=== PATIENT | male | born 1965 | race Caucasian/White ===

== ENCOUNTER 2020-11-21 07:18 | Emergency (ER) | payer BC, OTHER ==
--- NOTE | 2020-11-21 07:49 | EDPHYS ---
Physician Documentation [facility] Name: Jaylan Rios Age: 55 yrs Sex: Male : 1965 Arrival Date: 11/21/2020 Time: 07:23 Bed 13 Private MD: ED Physician Keith Shields HPI: 11/21 07:44 This 55 yrs old Male presents to ER via Ambulatory with complaints of Facial rn Swelling. 07:44 The patient presents with itching, localized swelling, rash. Onset: The rn symptoms/episode began/occurred 1 week(s) ago. Associated signs and symptoms: Pertinent positives: hives, rash, swelling, Pertinent negatives: fever, headache, shortness of breath. Possible causes: The patient has no known obvious cause for the symptoms. At home the patient or guardian has treated the symptoms with steroids. Severity of symptoms: At their worst the symptoms were moderate in the emergency department the symptoms are unchanged. The patient has not experienced similar symptoms in the past. The patient has been recently seen by a physician:. Pt reports facial swelling and rash, began 1 week ago, seen by pcp, put on medrol dose pack and aide, does not seem to help, + itching, now rash spreading to neck and torso. No known exposure. No sob. . Historical: - Allergies: 07:39 Sulfa (Sulfonamide Antibiotics); ll1 - PMHx: 07:39 Hypertension; High Cholesterol; ll1 - PSHx: 07:39 LEFT ROTATOR CUFF SURGERY; Hernia repair; ll1 - Immunization history:: Client reports receiving the 2nd dose of the Covid vaccine, Flu vaccine is not up to date. - Social history:: Smoking status: Patient reports use of chewing tobacco. - Family history:: not pertinent. - Hospitalizations: : No recent hospitalization is reported. ROS: 07:44 Constitutional: Negative for fever, chills, and weight loss, Eyes: Negative for injury, rn pain, redness, and discharge, ENT: Negative for injury, pain, and discharge, Neck: Negative for injury, pain, and swelling, Cardiovascular: Negative for chest pain, palpitations, and edema, Respiratory: Negative for shortness of breath, cough, wheezing, and pleuritic chest pain, Abdomen/GI: Negative for abdominal pain, nausea, vomiting, diarrhea, and constipation, Back: Negative for injury and pain, MS/Extremity: Negative for injury and deformity, Skin: + rash and itching to face/torso/neck Neuro: Negative for headache, weakness, numbness, tingling, and seizure. Exam: 07:44 Constitutional: This is a well developed, well nourished patient who is awake, alert, rn and in no acute distress. Scratching face and neck. Head/Face: Normocephalic, atraumatic. Eyes: + bilateral periorbital edema, no ocular drainage ENT: No oral swelling or stridor. Cardiovascular: Regular rate and rhythm. No pulse deficits. Respiratory: No increased work of breathing, no retractions or nasal flaring. Skin: + urticarial rash with excoriations, no skin sloughing, no bullae. No petechiae. MS/ Extremity: Pulses equal, no cyanosis. Neurovascular intact. Full, normal range of motion. Equal circumference. Neuro: Awake and alert, GCS 15 Vital Signs: 07:39 BP 137 / 104; Pulse 77; Resp 17; Temp 98.3; Pulse Ox 99% ; Weight 107.95 kg; Height 5 ll1 ft. 11 in. (180.34 cm); Pain 0/10; 08:04 BP 148 / 97; Pulse 74; Resp 17; Pulse Ox 98% on R/A; ll1 08:23 Pulse 77; Resp 17; Pulse Ox 99% on R/A; ll1 07:39 Body Mass Index 33.19 (107.95 kg, 180.34 cm) ll1 MDM: 07:28 Patient medically screened. rn 07:48 Differential diagnosis: angioedema, urticaria, local dermatitis. Data reviewed: vital rn signs, nurses notes, and as a result, I will discharge patient. Counseling: I had a detailed discussion with the patient and/or guardian regarding: the historical points, exam findings, and any diagnostic results supporting the discharge/admit diagnosis, the need for outpatient follow up, to return to the emergency department if symptoms worsen or persist or if there are any questions or concerns that arise at home. Special discussion: I discussed with the patient/guardian in detail that at this point there is no indication for admission to the hospital. It is understood, however, that if the symptoms persist or worsen the patient needs to return immediately for re-evaluation. Based on the history and exam findings, there is no indication for further emergent testing or inpatient evaluation. I discussed with the patient/guardian the need to see the research biostatistician for further evaluation of the symptoms. 11/21 07:43 Order name: IV Start; Complete Time: 07:46 rn Administered Medications: 07:52 Drug: Benadryl (diphenhydrAMINE) 25 mg Route: IVP; Site: right antecubital; ll1 08:17 Follow up: Response: No adverse reaction ll1 07:55 Drug: SOLU-Medrol (methylPrednisoLONE) 125 mg Route: IVP; Site: right antecubital; ll1 08:17 Follow up: Response: No adverse reaction ll1 Disposition: 11/21/20 07:49 Discharged to Home. Impression: Urticaria, unspecified, Dermatitis, unspecified. - Condition is Stable. - Discharge Instructions: Hives, Rash. - Prescriptions for Clindamycin HCl 300 mg Oral Capsule - take 1 capsule by ORAL route every 6 hours for 10 days; 40 capsule. Hydroxyzine HCl 50 mg Oral Tablet - take 1 tablet by ORAL route every 8 hours As needed; 20 tablet. Prednisone 20 mg Oral Tablet - take 1 tablet by ORAL route as directed for 10 days Take 3 tablets by mouth daily for 5 days, followed by 2 tablets by mouth daily for 3 days, followed by 1 tablet by mouth daily for 2 days, total of 10 days.; 23 tablet. - Medication Reconciliation Form, Thank You Letter, Antibiotic Education, Prescription Opioid Use form. - Follow up: Private Physician; When: As needed; Reason: Recheck today's complaints, Re-evaluation by your physician. - Problem is new. - Symptoms have improved. Signatures: Keith Shields MD MD rn Lewis, Lynsay, RN RN ll1 Corrections: (The following items were deleted from the chart) 08:23 07:49 11/21/2020 07:49 Discharged to Home. Impression: Urticaria, unspecified; ll1 Dermatitis, unspecified. Condition is Stable. Forms are Medication Reconciliation Form, Thank You Letter, Antibiotic Education, Prescription Opioid Use. Follow up: Private Physician; When: As needed; Reason: Recheck today's complaints, Re-evaluation by your physician. Problem is new. Symptoms have improved. rn
--- NOTE | 2020-11-21 07:49 | ER ---
Nurse's Notes [facility] Name: Jaylan Rios Age: 55 yrs Sex: Male : 1965 Arrival Date: 11/21/2020 Time: 07:23 Bed 13 Private MD: Diagnosis: Urticaria, unspecified;Dermatitis, unspecified Presentation: 11/21 07:39 Chief complaint: Patient states: Rash for 1 week. On prednisolone and for 4 ll1 days. Awakes with bad facial/head rash since Saturday. No fever. Coronavirus screen: Client denies travel out of the [place] in the last 14 days. At this time, the client does not indicate any symptoms associated with coronavirus-19. Ebola Screen: Patient denies travel to an Ebola-affected area in the 21 days before illness onset. Initial Sepsis Screen: Does the patient meet any 2 criteria? No. Patient's initial sepsis screen is negative. Does the patient have a suspected source of infection? Yes: Skin breakdown/wound. Risk Assessment: Do you want to hurt yourself or someone else? Patient reports no desire to harm self or others. Onset of symptoms was November 15, 2020. 07:39 Method Of Arrival: Ambulatory ll1 07:39 Acuity: NATALIIA 3 ll1 Historical: - Allergies: 07:39 Sulfa (Sulfonamide Antibiotics); ll1 - PMHx: 07:39 Hypertension; High Cholesterol; ll1 - PSHx: 07:39 LEFT ROTATOR CUFF SURGERY; Hernia repair; ll1 - Immunization history:: Client reports receiving the 2nd dose of the Covid vaccine, Flu vaccine is not up to date. - Social history:: Smoking status: Patient reports use of chewing tobacco. - Family history:: not pertinent. - Hospitalizations: : No recent hospitalization is reported. Screenin:03 Abuse screen: Denies threats or abuse. Nutritional screening: No deficits noted. ll1 Tuberculosis screening: No symptoms or risk factors identified. Fall Risk IV access (20 points). Total Gallegos Fall Scale indicates No Risk (0-24 pts). Assessment: 08:04 General: Appears uncomfortable, Behavior is calm, cooperative, appropriate for age. ll1 Pain: Denies pain. Derm: Rash noted that is itchy, red, raised, on FACE/HEAD LIGHT RASH TO BOTH ARMS Reports itching. 08:22 Reassessment: No changes from previously documented assessment. Patient and/or family ll1 updated on plan of care and expected duration. Pain level reassessed. Patient is alert, oriented x 3, equal unlabored respirations, skin warm/dry/pink. Vital Signs: 07:39 BP 137 / 104; Pulse 77; Resp 17; Temp 98.3; Pulse Ox 99% ; Weight 107.95 kg; Height 5 ll1 ft. 11 in. (180.34 cm); Pain 0/10; 08:04 BP 148 / 97; Pulse 74; Resp 17; Pulse Ox 98% on R/A; ll1 08:23 Pulse 77; Resp 17; Pulse Ox 99% on R/A; ll1 07:39 Body Mass Index 33.19 (107.95 kg, 180.34 cm) 1 ED Course: 07:23 Patient arrived in ED. ds1 07:28 Keith Shields MD is Attending Physician. rn 07:35 Inserted saline lock: 22 gauge in right antecubital area, using aseptic technique. ll1 07:38 Cynthia Smith RN is Primary Nurse. ll1 07:38 Arm band placed on Patient placed in an exam room, on a stretcher. ll1 07:40 Triage completed. ll1 08:03 Patient has correct armband on for positive identification. Bed in low position. Call ll1 light in reach. Side rails up X 1. Pulse ox on. NIBP on. 08:22 No provider procedures requiring assistance completed. IV discontinued, intact, ll1 bleeding controlled, No redness/swelling at site. Pressure dressing applied. Administered Medications: 07:52 Drug: Benadryl (diphenhydrAMINE) 25 mg Route: IVP; Site: right antecubital; ll1 08:17 Follow up: Response: No adverse reaction ll1 07:55 Drug: SOLU-Medrol (methylPrednisoLONE) 125 mg Route: IVP; Site: right antecubital; ll1 08:17 Follow up: Response: No adverse reaction 1 Outcome: 07:49 Discharge ordered by . rn 08:23 Patient left the ED. 1 Signatures: Roma Mcrae ds1 Keith Shields MD MD rn Lewis, Lynsay, RN RN [facility]
[2020-11-21] MEDS ORDERED: METHYLPREDNISOLONE 125 MG INJ ONE (08:13)
[2020-11-21] MEDS ORDERED: DIPHENHYDRAMINE 50 MG/ML VIAL ONE (08:13)
[2020-11-21 08:30] VITALS: TEMP 98.3
[2020-11-21 08:32] VITALS: BP 148/97
[2020-11-21 08:33] VITALS: O2SAT 99
== END 2020-11-21 08:23 | disposition home or self-care (01) ==
LOC: ER 07:18
DX: L30.9 Dermatitis, unspecified (principal); I10 Essential (primary) hypertension; F17.220 Nicotine dependence, chewing tobacco, uncomplicated; Z88.2 Allergy status to sulfonamides
CPT/HCPCS: 96375; 96374; 99283; J1200; J2930